=== PATIENT | male | born 1985 | race Caucasian/White ===

== ENCOUNTER 2016-11-26 23:53 | Emergency (ER) | payer OTHER ==
[2016-11-26 23:59] VITALS: BP 131/82; PULSE 74; RESP 16; TEMP 98.1; O2SAT 93
--- NOTE | 2016-11-27 00:17 | EDPHY ---
H & P Time Seen by Provider: 11/27/16 00:10 HPI/ROS: CHIEF COMPLAINT: forehead laceration HISTORY OF PRESENT ILLNESS: 31-year-old male presents emergency department with a laceration to his forehead. Patient was playing indoor soccer when another player's knee struck his forehead. Patient denies loss of consciousness , no neck pain, no blurred vision. Tetanus is up-to-date, he denies other complaints. REVIEW OF SYSTEMS: A comprehensive 10 point review of systems is otherwise negative aside from elements mentioned in the history of present illness. Smoking Status: Never smoked Physical Exam: GEN: Awake, alert, oriented, no acute distress RESP: nl resp effort MSK: No C-spine tenderness to palpation SKIN: 1.5 cm vertical laceration to center of forehead Neuro: Neurologically intact Constitutional: Initial Vital Signs Temperature (C) 36.7 C 11/26/16 23:55 Heart Rate 74 11/26/16 23:55 Respiratory Rate 16 11/26/16 23:55 Blood Pressure 131/82 H 11/26/16 23:55 O2 Sat (%) 93 11/26/16 23:55 O2 Delivery Mode Room Air Allergies/Adverse Reactions: gluten Allergy (Verified 11/27/16 00:00) Sulfa (Sulfonamide Antibiotics) Allergy (Verified 10/29/09 22:58) Home Medications: Medication Instructions Recorded NK [No Known Home Meds] 11/27/16 MDM/Departure - MDM Procedures: Procedure: Laceration repair. Verbal consent was obtained from the patient. The 1.5 cm laceration on the forehead was anesthetized using 1% lidocaine with epinephrine. The wound was carefully irrigated by the emergency department systems testing laboratory technician. Next, the wound was prepped and draped in sterile fashion and explored to its base with a gloved finger. There were no deep structures involved. No vascular injury was identified. No foreign bodies were identified. The wound was repaired with 6.0 Prolene, 5 simple interrupted sutures. The wound repair was simple. The procedure was performed by myself. Tetanus and antibiotic status were addressed. - Depart Disposition: Home, Routine, Self-Care Clinical Impression: Forehead laceration Qualifiers: Encounter type: initial encounter Qualified Code(s): S01.81XA - Laceration without foreign body of other part of head, initial encounter Minor head injury without loss of consciousness Qualifiers: Encounter type: initial encounter Qualified Code(s): S09.90XA - Unspecified injury of head, initial encounter Condition: Good Instructions: Facial Laceration (ED), Head Injury (ED) Additional Instructions: Return to the emergency department in 5 days for suture removal, return sooner for any forceful vomiting, confusion, altered gait, any other questions or concerns. Referrals: Pradeep Sosa MD [Primary Care Provider] - As per Instructions
[2016-11-27] MEDS ORDERED: TDAP ADULT 0.5 ML INJ (BOOSTRIX) IM ONE (00:25)
== END 2016-11-27 00:38 | disposition home or self-care (01) ==
PROC: 0HQ1XZZ Repair Face Skin, External Approach (ICD-10-PCS; principal; 2016-11-26)
DX: S01.81XA Laceration without foreign body of other part of head, initial encounter (principal); Z23 Encounter for immunization; W50.0XXA Accidental hit or strike by another person, initial encounter; Y93.66 Activity, soccer